=== PATIENT | female | born 1980 | race Caucasian/White ===

== ENCOUNTER 2016-11-23 17:56 | Emergency (ER) | payer MEDICAID ==
[2016-11-23] MEDS ORDERED: LIDOCAINE/EPI 2% 1:100,000 20 ML VIAL ONE (19:00)
--- NOTE | 2016-11-23 19:19 | ER PHYSICIAN DOCUMENTATION ---
Physician Documentation [facility] Name:Angely Bonds Age:36 yrs Sex:Female :1980 Arrival Date:11/23/2016 Time:17:56 Bed1 Private MD:Cj Chamberlain ED, [place] Disposition: 11/23/16 19:12 Discharged to Home/Self Care. Impression: Abscess. - Condition is Good. - Discharge Instructions: Abscess - ABSCESS, I and D. - Medical Reconciliation form form. - Follow up: Cj Chamberlain MD; When: As needed. - Problem is new. - Symptoms have improved. HPI: 11/23 19:13 This 36 yrs old Female presents to ER via Private Vehicle with complaints of sc Boil - LEFT/BUTT. 19:13 The patient presents with an abscess of the left gluteus darion. Description: The sc affected area is moderate sized, confluent. Onset: The symptom(s)/episode began/occurred 4 day(s) ago. Possible cause(s): unknown. Associated signs and symptoms: The patient has no apparent associated signs or symptoms, Pertinent negatives: drainage, foreign body sensation, fever. The patient has been recently seen by a physician: the patient's primary care provider. started on Bactrim 2 days ago but now increased pain from sitting on abscess. Historical: - Allergies: PENICILLINS; EES; Keflex; - Home Meds: 1. Celexa Oral once daily 2. Plaquenil Oral 3. Albuterol Inhl - PMHx: DEPRESSION; Dental pain (January 23, 2015); RHEUMATOID ARTHRITIS; abscess; - PSHx: ; foot left; TONSILLECTOMY; Appendectomy; - Tetanus: < 10 years. - Ebola Screening: : Patient negative for fever greater than or equal to 101.5 degrees Fahrenheit, and additional compatible Ebola Virus Disease symptoms. Patient denies exposure to infectious person. Patient denies travel to an Ebola-affected area in the 21 days before illness onset. No symptoms or risks identified at this time. . - Immunization history: Unable to Obtain. - Social history: Smoking status: Patient states was never smoker of tobacco. Patient uses alcohol but reports only rare drinking. ROS: 19:15 Constitutional: Negative for fever, chills, and weight loss. sc Eyes: Negative for injury, pain, redness, and discharge. Neck: Negative for injury, pain, and swelling. Cardiovascular: Negative for chest pain, palpitations, and edema. Respiratory: Negative for shortness of breath, cough, wheezing, and pleuritic chest pain. Back: Negative for injury and pain. 19:15 Neuro: Negative for headache, weakness, numbness, tingling, and seizure. pa 19:15 Skin: Positive for abscess. Exam: Constitutional: This is a well developed, well nourished patient who is awake, alert, and in no acute distress. Head/Face: Normocephalic, atraumatic. Eyes: Pupils equal round and reactive to light, extra-ocular motions intact. Lids and lashes normal. Conjunctiva and sclera are non-icteric and not injected. Cornea within normal limits. Periorbital areas with no swelling, redness, or edema. Cardiovascular: Regular rate and rhythm with a normal S1 and S2. No gallops, murmurs, or rubs. Normal PMI, no JVD. No pulse deficits. Respiratory: Lungs have equal breath sounds bilaterally, clear to auscultation and percussion. No rales, rhonchi or wheezes noted. No increased work of breathing, no retractions or nasal flaring. 19:16 Neuro: Awake and alert, GCS 15, oriented to person, place, time, and situation. pa Cranial nerves II-XII grossly intact. Motor strength 5/5 in all extremities. Sensory grossly intact. Cerebellar exam normal. Normal gait. 19:16 Skin: abscess, that is moderate sized, approximately 4 cm(s), of the left gluteus darion. Vital Signs: 18:30 BP 110 / 43; Pulse 75; Resp 20; Temp 98.0; Pulse Ox 96% on R/A; Weight 111.58 kg; rs Height 5 ft. 8 in. (172.72 cm); Pain 8/10; 18:30 Body Mass Index 37.40 (111.58 kg, 172.72 cm) Procedures: 19:17 I & D: Incision and drainage was performed for an abscess of the left left gluteus sc darion Prepped with Betadine, Anesthetized with ml's 2% Lidocaine with epinephrine. 4 ml's 2% Lidocaine with epinephrine. Incised with #15 blade. Drained small amount purulent fluid. the patient tolerated the procedure well. MDM: 18:32 Patient medically screened. pa 19:17 Differential diagnosis: abscess, cellulitis. Data reviewed: vital signs, nurses notes, pa old medical records, and as a result, I will discharge patient. Counseling: I had a detailed discussion with the patient and/or guardian regarding: the historical points, exam findings, and any diagnostic results supporting the discharge/admit diagnosis, continue Bactrim. Dispensed Medications: No medications were administered Signatures: Candida Nunez, VIPIN RN Rony Shaver MD MD pa
--- NOTE | 2016-11-23 19:19 | ER NURSING DOCUMENTATION ---
Nurse's Notes [facility] Name:Angely Bonds Age:36 yrs Sex:Female :1980 Arrival Date:11/23/2016 Time:17:56 Bed1 Private MD:Cj Chamberlain Diagnosis:Abscess Presentation: 11/23 18:12 Presenting complaint: Patient states: States she was seen by PA in clinic downstairs rs two days ago. Started on Bactrim DS BID x 7 days. No I & D was done. Pt states she is having much worse pain. Has had abscesses in the past. Denies F/C, N/V. Transition of care: Home. 18:12 Acuity: SEVERINO 3 rs 18:12 Method Of Arrival: Private Vehicle rs Triage Assessment: 18:20 General: Appears in no apparent distress, well developed, well nourished, well groomed, rs Behavior is cooperative, pleasant. Pain: Complains of pain in At site of abscess along her left lower buttock. Pain does not radiate. Pain currently is 8 out of 10 on a pain scale. Neuro: No deficits noted. Level of Consciousness is awake, alert, Oriented to person, place, time, event. Cardiovascular: No deficits noted. Capillary refill < 3 seconds Heart tones S1 S2 present Pulses are 3+ in left radial artery. Respiratory: No deficits noted. Airway is patent Respiratory effort is even, unlabored, Respiratory pattern is regular, symmetrical, Breath sounds are clear bilaterally. GI: No deficits noted. Abdomen is non- distended obese, Bowel sounds present X 4 quads. Derm: Skin abscess and cellulitis on her left lower buttock. Reports increased pain. Historical: - Allergies: PENICILLINS; EES; Keflex; - Home Meds: 1. Celexa Oral once daily 2. Plaquenil Oral 3. Albuterol Inhl - PMHx: DEPRESSION; Dental pain (January 23, 2015); RHEUMATOID ARTHRITIS; abscess; - PSHx: ; foot left; TONSILLECTOMY; Appendectomy; - Tetanus: < 10 years. - Ebola Screening: : Patient negative for fever greater than or equal to 101.5 degrees Fahrenheit, and additional compatible Ebola Virus Disease symptoms. Patient denies exposure to infectious person. Patient denies travel to an Ebola-affected area in the 21 days before illness onset. No symptoms or risks identified at this time. . - Immunization history: Unable to Obtain. - Social history: Smoking status: Patient states was never smoker of tobacco. Patient uses alcohol but reports only rare drinking. Screenin:33 Infectious Disease Risk Other: MRSA?. Abuse screen: Denies threats or abuse. rs Nutritional screening: No deficits noted. Assessment: 18:32 See Triage Assessment done by same RN. rs Vital Signs: 18:30 BP 110 / 43; Pulse 75; Resp 20; Temp 98.0; Pulse Ox 96% on R/A; Weight 111.58 kg; rs Height 5 ft. 8 in. (172.72 cm); Pain 8/10; 18:30 Body Mass Index 37.40 (111.58 kg, 172.72 cm) rs ED Course: 17:57 Patient arrived in ED. ds 17:57 Cj Chamberlain MD is Private Physician. ds 18:12 Candida Nunez RN is Primary Nurse. rs 18:15 Triage completed. rs 18:31 Rony Ruvalcaba MD is Attending Physician. sc 18:31 Notified ED Physician of patient's arrival and chief complaint. Dr. Ruvalcaba notified. Arm rs band placed on Bed in low position Call Light in Reach Side rails up x1. Family accompanied patient. 18:33 Door closed. Noise minimized. Verbal reassurance given. rs 18:34 No apparent distress. Resting quietly. rs 19:11 Cj Chamberlain MD is Referral Physician. sc Administered Medications: No medications were administered Outcome: 19:12 Discharge ordered by MD. sc 19:17 Discharged to home ambulatory. rs 19:17 Condition: improved 19:17 Discharge instructions given to patient, Instructed on discharge instructions, follow up and referral plans. medication usage, Demonstrated understanding of instructions, medications. 19:18 Patient left the ED. rs 11/24 09:40 Discharge F/U Call: Spoke with: patient. Overall Care on a scale of 1-[address] being the best care, you rate our care as: Other comments: pt states she is feeling much better. pt denies any question or concerns. Signatures: Monique Keller RN RN st Candida Nunez RN RN rs Srot, Evita, Reg Reg ds Rony Ruvalcaba MD MD wv
== END 2016-11-23 19:19 | disposition home or self-care (01) ==
LOC: ER 17:56
DX: L02.31 Cutaneous abscess of buttock (principal); Z79.899 Other long term (current) drug therapy
CPT/HCPCS: 99281